=== PATIENT | male | born 1995 | race Caucasian/White ===

== ENCOUNTER 2019-04-19 12:14 | Emergency (ER) | payer SELFPAY | END 2019-04-19 13:53 | disposition home or self-care (01) | LOC: JERFT 12:14 ==

== ENCOUNTER 2021-08-10 09:19 | Emergency (ER) | payer SELFPAY ==
[2021-08-10 09:36] VITALS: TEMP 98; BMI 30.4
[2021-08-10] MEDS ORDERED: KETOROLAC TROMETHAMINE 30 MG/1 ML VIAL IM ONE (10:18)
[2021-08-10] MEDS ORDERED: ACETAMINOPHEN 325 MG TABLET (FP) PO ONE (10:18)
[2021-08-10] MEDS ORDERED: LIDOCAINE 5% TOPICAL PATCH TP ONE (10:20)
[2021-08-10] MEDS ORDERED: ACETAMINOPHEN 325 MG TABLET (FP) ONE (10:24)
[2021-08-10] MEDS ORDERED: LIDOCAINE 5% TOPICAL PATCH ONE (10:25)
[2021-08-10] MEDS ORDERED: KETOROLAC TROMETHAMINE 30 MG/1 ML VIAL ONE (10:25)
[2021-08-10] MEDS ORDERED: oxyCODONE HCL 5 MG TABLET PO ONE (12:15)
[2021-08-10] MEDS ORDERED: oxyCODONE HCL 5 MG TABLET ONE (12:26)
[2021-08-10 13:56] VITALS: BP 119/77; PULSE 76
[2021-08-10] MEDS ORDERED: LIDOCAINE PATCH REMOVAL MC ONE (22:00)
== END 2021-08-10 13:48 | disposition home or self-care (01) ==
LOC: JER 09:19
PROC: 3E023GC Introduction of Other Therapeutic Substance into Muscle, Percutaneous Approach (ICD-10-PCS; principal; 2021-08-10)
DX: M54.50 Low back pain, unspecified (principal)
CPT/HCPCS: 72131-TC; 99284-25

== ENCOUNTER 2024-10-02 06:58 | Emergency (ER) | payer OTHER ==
[2024-10-02 07:12] VITALS: BMI 37.1
[2024-10-02] MEDS ORDERED: ACETAMINOPHEN INJECTION 100 ML ONE (07:24)
[2024-10-02] MEDS: ACETAMINOPHEN 1000 MG/100 ML BAG IVPB ONE (07:53)
[2024-10-02] MEDS: LACTATED RINGERS SOLUTION 1000 ML INFUS.BAG IV ONE (07:54)
[2024-10-02 08:13] LABS: EPI CELLS 2 /uL (0-25.1); HYALINE CASTS 0 /uL (0-3.1); PH,URINE 5.5 (5.0-8.0); URINE APPEARANCE CLEAR; URINE BACTERIA 9 /uL (0-1359); URINE BILIRUBIN NEGATIVE (NEGATIVE); URINE COLOR YELLOW; URINE GLUCOSE (UA) NEGATIVE (NEGATIVE); URINE KETONE NEGATIVE (NEGATIVE); URINE LEUK ESTERASE NEGATIVE (NEGATIVE); URINE NITRITE NEGATIVE (NEGATIVE); URINE PROTEIN NEGATIVE (NEGATIVE); URINE RBC 11 /uL (0-23.9); URINE UROBILINOGEN 0.2 mg/dL (0.2-1.0); URINE WBC 4 /uL (0-25.8)
[2024-10-02 08:18] LABS: POTASSIUM 3.8 mmol/L (3.5-5.1)
[2024-10-02 08:23] LABS: ALBUMIN 4.2 g/dl (3.4-5.0); BLOOD UREA NITROGEN 12.8 mg/dL (7-18); CALCIUM 9.4 mg/dL (8.5-10.1); MAGNESIUM 1.9 mg/dL (1.8-2.4)
[2024-10-02 08:27] LABS: CREATININE 0.9 mg/dL (0.55-1.3)
[2024-10-02 08:28] LABS: BILIRUBIN,TOTAL 0.5 mg/dL (0.2-1); TOT PROT 7.9 g/dl (6.4-8.2)
[2024-10-02] MEDS ORDERED: KETOROLAC TROMETHAMINE 15 MG/ML VIAL ONE (09:05)
[2024-10-02 09:06] LABS: BASO % 0.2 % (0-2.0); HEMATOCRIT 44.3 % (35.4-49); HEMOGLOBIN 14.8 GM/dL (11.7-16.9); LYMPH % 9.3 % (8-40); MCH 29.2 pg (25.7-33.7); MCHC 33.3 g/dl (32.0-35.9); MEAN CELL VOLUME 87.6 fl (80-96); MEAN PLT VOLUME 7.6 fl (7.5-11.1); MONO % 5.1 % (3.8-10.2); NEUT % 84.4 % (42.8-82.8); PLATELET COUNT 277 10^3/uL (134-434); RBC 5.05 M/mm3 (4.00-5.60); RDW 13.4 % (11.9-15.9)
[2024-10-02] MEDS: KETOROLAC TROMETHAMINE 15 MG/ML VIAL IVPUSH ONE (09:11)
[2024-10-02 09:12] VITALS: RESP 18; TEMP 98.1
[2024-10-02 12:29] VITALS: BP 119/56; PULSE 76
== END 2024-10-02 12:53 | disposition home or self-care (01) ==
LOC: JER 06:58
PROC: 3E033NZ Introduction of Analgesics, Hypnotics, Sedatives into Peripheral Vein, Percutaneous Approach (ICD-10-PCS; principal; 2024-10-02)
PROC: 3E0333Z Introduction of Anti-inflammatory into Peripheral Vein, Percutaneous Approach (ICD-10-PCS; 2024-10-02)
DX: R50.9 Fever, unspecified (principal); R06.02 Shortness of breath; R07.81 Pleurodynia; R30.0 Dysuria; R00.0 Tachycardia, unspecified; R51.9 Headache, unspecified; M79.10 Myalgia, unspecified site; R53.1 Weakness; Z20.822 Contact with and (suspected) exposure to COVID-19
CPT/HCPCS: 0241U-QW; 36415; 71046-TC-FY; 80053; 81003; 83735; 84484; 85025; 86803; 87040; 87086; 93005; 93010; 99285-25; J0131